=== PATIENT | female | born 1960 | race Caucasian/White ===

== ENCOUNTER 2017-09-18 01:20 | Emergency (ER) | payer MEDICARE ==
[~2017-09-18] VITALS: Ht 172.7 cm; Wt 131.4 kg
[~2017-09-18 01:20] MED LIST: ALBU17AE27 IH; ALPR2TAB PO; AMLO-511 PO; AMPH30TA3 PO; ATEN50TA PO; FLUO40CA PO; FLUT1DIS5 IH; FURO40TA5 PO; HYDR-3114 PO; HYDR8TAB2 PO; LEVO500 PO; LISI40TA4 PO; MOME17N NASAL; MONT10TA21 PO; OMEP20TA25 PO; OXYC80 PO; POTA25PA PO; PRED20TA3 PO
[2017-09-18] MEDS ORDERED: QUET25TA PO (01:40)
[2017-09-18] MEDS ORDERED: GABA-531 PO (01:40)
[2017-09-18] MEDS ORDERED: PANT40TA25 PO (01:40)
[2017-09-18] MEDS ORDERED: LEVO50 PO (01:40)
[2017-09-18] MEDS ORDERED: LORA10TA7 PO (01:40)
[2017-09-18] MEDS ORDERED: DULO60CA44 PO (01:40)
[2017-09-18] MEDS ORDERED: METO25 PO (01:40)
[2017-09-18] MEDS ORDERED: DIGO-44 PO (01:40)
[2017-09-18 02:30] VITALS: BP 109/68
== END 2017-09-18 03:30 | disposition home or self-care (01) ==
LOC: EMS 01:21
DX: M23.92 Unspecified internal derangement of left knee (principal); F32.9 Major depressive disorder, single episode, unspecified; F90.9 Attention-deficit hyperactivity disorder, unspecified type; I10 Essential (primary) hypertension; J45.909 Unspecified asthma, uncomplicated; Z79.891 Long term (current) use of opiate analgesic
CPT/HCPCS: 29505; 29530; 99284

== ENCOUNTER 2019-02-13 04:08 | Emergency (ER) | payer MEDICARE, OTHER ==
[~2019-02-13] VITALS: Ht 172.7 cm; Wt 136.4 kg
[~2019-02-13 04:08] MED LIST changes: -AMLO-511 PO; -AMPH30TA3 PO; -ATEN50TA PO; +DIGO125T84 PO; +DULO60CA44 PO; -FLUO40CA PO; +GABA-531 PO; -HYDR-3114 PO; +LEVO50 PO; -LEVO500 PO; +LORA10TA7 PO; +METO25 PO; -MONT10TA21 PO; -OMEP20TA25 PO; +PANT40TA25 PO; -POTA25PA PO; -PRED20TA3 PO; +QUET25TA PO
[2019-02-13] MEDS ORDERED: CARI250T PO (04:31)
[2019-02-13] MEDS ORDERED: PERCT PO (04:31)
[2019-02-13] MEDS ORDERED: FURO-152 PO (04:31)
[2019-02-13] MEDS ORDERED: LEVO50 PO (04:31)
[2019-02-13] MEDS ORDERED: QUET25TA PO (04:31)
[2019-02-13] MEDS ORDERED: ESCI10TA PO (04:31)
[2019-02-13] MEDS ORDERED: PANT40TA25 PO (04:31)
[2019-02-13] MEDS ORDERED: ZALE5CAP6 PO (04:31)
[2019-02-13] MEDS ORDERED: LISI-662 PO (04:31)
[2019-02-13] MEDS ORDERED: ALPR0.5T8 PO (04:31)
[2019-02-13] MEDS ORDERED: MELA1TAB17 PO (04:31)
[2019-02-13] MEDS ORDERED: SENN-176 PO (04:31)
[2019-02-13] MEDS ORDERED: METO25 PO (04:31)
[2019-02-13] MEDS ORDERED: OXYC40 PO (04:31)
[2019-02-13] MEDS ORDERED: DICL2100G TP (04:31)
[2019-02-13] MEDS ORDERED: DIGO125T2 PO (04:31)
[2019-02-13] MEDS ORDERED: DULO60CA44 PO (04:31)
[2019-02-13] MEDS ORDERED: CYCLOBENZAPRINE HCL 10 MG TABLET PO ONE (04:45)
[2019-02-13] MEDS ORDERED: LIDOCAINE 5% TRANSDERMAL PATCH TD ONE (04:45)
[2019-02-13] MEDS ORDERED: KETOROLAC TROMETHAMINE 30 MG/ML VIAL IM ONE (04:45)
[2019-02-13] MEDS ORDERED: OxyCODONE HCL 10 MG IR TABLET PO ONE (07:30)
[2019-02-13 08:28] LABS: ANION GAP 6 mmol/L (8-16); CALCIUM, TOTAL 9.2 mg/dL (8.8-10.5); CARBON DIOXIDE 31 mmol/L (22-29); CHLORIDE 98 mmol/L (98-107); CREATININE 0.89 mg/dL (0.60-1.30); GLOMERULAR FILTR. RATE CALC > 60 mL/min (>60); GLUCOSE,RANDOM 162 mg/dL (70-110); SODIUM SERUM 135 mmol/L (136-145); UREA NITROGEN, BLOOD 11 mg/dL (7-18)
[2019-02-13 08:31] LABS: EOSINOPHILS % (AUTO) 1.8 % (1.0-6.0); HEMATOCRIT 33.5 % (36-46); HEMOGLOBIN 10.6 g/dL (12.0-16.0); LYMPHOCYTES # (AUTO) 2.6 K/uL (1.0-4.8); LYMPHOCYTES % (AUTO) 27.6 % (22.0-44.0); MEAN CORPUSCULAR HEMOGLOBIN 25.3 pg (26.0-34.0); MEAN CORPUSCULAR HGB CONC 31.7 G/dL (31.0-37.0); MEAN CORPUSCULAR VOLUME 80 fL (80-100); MONOCYTES # (AUTO) 0.7 K/uL (0.1-1.0); MONOCYTES % (AUTO) 7.1 % (2.0-9.0); NEUTROPHILS # (AUTO) 5.8 K/uL (1.8-7.7); NEUTROPHILS % (AUTO) 62.5 % (40.0-70.0); PLATELET COUNT (AUTO) 127 K/uL (150-450); RED BLOOD CELL COUNT(AUTO) 4.19 MIL/uL (4.00-5.20); RED CELL DISTRIBUTION WIDTH 16.7 % (11.5-14.5)
[2019-02-13 08:34] LABS: ALANINE AMINOTRANSFERASE 23 U/L (12-78); ALBUMIN 3.7 g/dL (3.4-5.0); ALKALINE PHOSPHATASE 91 U/L (46-116); ASPARTATE AMINOTRANSFERASE 21 U/L (15-37); BILIRUBIN,TOTAL 0.5 mg/dL (0.1-1.0); TOTAL PROTEIN, SERUM 7.8 g/dL (6.4-8.2)
[2019-02-13 11:45] VITALS: BP 118/73
== END 2019-02-13 12:18 | disposition home or self-care (01) ==
LOC: EMS 04:11
DX: S16.1XXA Strain of muscle, fascia and tendon at neck level, initial encounter (principal); G89.4 Chronic pain syndrome; I10 Essential (primary) hypertension; J45.909 Unspecified asthma, uncomplicated; M19.90 Unspecified osteoarthritis, unspecified site; F32.9 Major depressive disorder, single episode, unspecified; F90.9 Attention-deficit hyperactivity disorder, unspecified type; Z98.890 Other specified postprocedural states; Z79.899 Other long term (current) drug therapy; X50.9XXA Other and unspecified overexertion or strenuous movements or postures, initial encounter; Y93.89 Activity, other specified; Y92.89 Other specified places as the place of occurrence of the external cause; Y99.8 Other external cause status
CPT/HCPCS: 36415; 71045; 72040; 72070; 80053; 84484; 85025; 93005; 96372; 99285; J1885